=== PATIENT | male | born 1950 | race Caucasian/White ===

== ENCOUNTER 2018-08-09 15:09 | Emergency (ER) | payer MEDICAID ==
[~2018-08-09] VITALS: Ht 175.3 cm; Wt 104.0 kg
[2018-08-09 15:43] VITALS: BP 141/80
[2018-08-09] MEDS ORDERED: CEPH-572 PO (17:19)
[2018-08-09] MEDS ORDERED: SILV20CR13 TOP (17:19)
[2018-08-09] MEDS ORDERED: PRED20TA PO (17:19)
[2018-08-09] MEDS ORDERED: predniSONE 20 mg tablet PO ONE (17:20)
[2018-08-09] MEDS ORDERED: diphenhydrAMINE 25mg capsule PO ONE (17:25)
== END 2018-08-09 18:04 | disposition home or self-care (01) ==
LOC: ER 15:10
DX: L03.115 Cellulitis of right lower limb (principal); L03.116 Cellulitis of left lower limb; L25.9 Unspecified contact dermatitis, unspecified cause; F12.90 Cannabis use, unspecified, uncomplicated; F17.200 Nicotine dependence, unspecified, uncomplicated; Z79.899 Other long term (current) drug therapy
CPT/HCPCS: 99283; J7512; Q0163